=== PATIENT | female | born 1985 | race Caucasian/White ===

== ENCOUNTER 2017-11-04 14:27 | Inpatient (IN) | payer BC ==
[~2017-11-04] VITALS: Ht 158.8 cm; Wt 108.6 kg
[2017-11-04] VITALS (17 sets, daily range): BP systolic 90–124; BP diastolic 44–75; PULSE 73–94; TEMP 98.2–98.4
[~2017-11-04 14:27] MED LIST: ACID REFLUX MED; ALDACTONE 100M100 MG PO; FERROUS SU325 MG/TAB PO; FLEXERIL 1010 MG/TAB PO; LORTAB 5/500 501 TAB PO; MOTRIN 800800 MG/TAB PO; NAPROSYN500 MG PO; PERCOCET 325 MG1 TA2 PO; PRENATAL1 TA4 PO; SENOKOT S 50 MG1 TAB PO; [UNRECOGNIZED DRUG - OTHER] PO
[2017-11-04] MEDS ORDERED: PRENATAL1 TA7 PO (17:20)
[2017-11-04 17:35] LABS: BASO % 0.2 % (0.0-2.0); EOS % 0.3 % (0-4.0); GRAN # 9.4 (1.4-6.5); GRAN % 75.5 % (42.2-75.2); LYMPH # 1.9 (1.2-3.4); LYMPH % 15.6 % (20.0-51.0); MEAN CELL VOLUME 88 fl (80.0-100.0); MEAN CORPUSCULAR HGB CONC 33 g/dl (33.0-37.0); MEAN PLATELET VOLUME 11.2 fl (7.4-10.4); MONO # 0.8 (0.1-0.6); MONO % 6.1 % (1.7-9.3); PLATELET COUNT 192 K/mm3 (130-400); RED BLOOD COUNT 4.16 M/mm3 (4.10-5.30); REDCELL DISTRIBUTION WIDTH-CV 14.1 % (11.5-14.5)
[2017-11-04 17:36] LABS: HEMATOCRIT 36.4 % (37.0-47.0); HEMOGLOBIN 11.9 g/dl (12.5-16.0); MEAN CORPUSCULAR HEMOGLOBIN 29 pg (27.0-31.0)
[2017-11-05] VITALS: BP 97/51; PULSE 70
[2017-11-05 05:00] VITALS: BP 98/62; PULSE 72; TEMP 98.1
[2017-11-05 07:36] VITALS: BP 115/71; PULSE 75; TEMP 97.5
[2017-11-05 15:29] VITALS: BP 115/72; PULSE 78; TEMP 98
[2017-11-05 20:00] VITALS: BP 110/51; PULSE 78; TEMP 98.2
[2017-11-06 08:00] VITALS: BP 106/56; PULSE 77; TEMP 98.1
[2017-11-06] MEDS ORDERED: IBU800 M1 PO (08:54)
[2017-11-06] MEDS ORDERED: PERCOCET 325 MG1 TA2 PO (08:55)
== END 2017-11-06 13:25 | disposition home or self-care (01) | DRG 766 ==
LOC: LDR 14:27 → OB 17:00 → LDR 11-05 14:16 → OB 11-06 13:25
PROVIDERS: Student in an Organized Health Care Education/Training Program
PROC: 10D00Z1 Extraction of Products of Conception, Low, Open Approach (ICD-10-PCS; principal; 2017-11-04)
DX: O34.211 Maternal care for low transverse scar from previous cesarean delivery (principal); N85.8 Other specified noninflammatory disorders of uterus; Z3A.39 39 weeks gestation of pregnancy; Z37.0 Single live birth
CPT/HCPCS: J0690; J1885; J2175; J2370; J2405; J2590; J3010; J7120

== ENCOUNTER 2019-02-07 18:23 | Observation (INO) | payer BC ==
[~2019-02-07] VITALS: Ht 157.5 cm; Wt 101.6 kg
[~2019-02-07 18:23] MED LIST changes: +IBU800 M1 PO; +PRENATAL1 TA7 PO
[2019-02-07 19:13] LABS: BASO % 0.4 % (0.0-2.0); EOS # 0.1 (0.0-0.7); EOS % 0.9 % (0-4.0); GRAN # 6.8 (1.4-6.5); GRAN % 65.9 % (42.2-75.2); HEMATOCRIT 40.3 % (37.0-47.0); HEMOGLOBIN 13.5 g/dl (12.5-16.0); LYMPH # 2.6 (1.2-3.4); LYMPH % 25.1 % (20.0-51.0); MEAN CELL VOLUME 85 fl (80.0-100.0); MEAN CORPUSCULAR HEMOGLOBIN 29 pg (27.0-31.0); MEAN CORPUSCULAR HGB CONC 34 g/dl (33.0-37.0); MEAN PLATELET VOLUME 10.3 fl (7.4-10.4); MONO # 0.8 (0.1-0.6); MONO % 7.2 % (1.7-9.3); PLATELET COUNT 224 K/mm3 (130-400); RED BLOOD COUNT 4.72 M/mm3 (4.10-5.30); REDCELL DISTRIBUTION WIDTH-CV 12.8 % (11.5-14.5)
[2019-02-07 19:25] LABS: ALBUMIN 4.1 gm/dL (3.5-5.0); BILIRUBIN,TOTAL 0.9 mg/dL (0.0-1.0); C-REACTIVE PROTEIN 1.1 mg/dL (0.0-0.9); CALCIUM 9.4 mg/dL (8.4-10.2); CREATININE, serum 0.59 (0.52-1.25); POTASSIUM 3.8 mmol/L (3.4-5.0); TOTAL PROTEIN 7.4 gm/dL (6.4-8.2)
[2019-02-07 20:23] LABS: COLLECTION METHOD CLEAN CATCH
[2019-02-07 20:37] LABS: PH 8 (5-8); SQUAMOUS EPITHELIAL 0-2 /hpf; URINE APPEARANCE Clear; URINE BACTERIA None Seen /hpf; URINE BILIRUBIN Negative (NEGATIVE); URINE BLOOD 2+ (NEGATIVE); URINE COLOR Yellow; URINE GLUCOSE Negative (NEGATIVE); URINE KETONE Negative (NEGATIVE); URINE LEUKOCYTE ESTERASE Negative (NEGATIVE); URINE NITRATE Negative (NEGATIVE); URINE PROTEIN(semi-quant) Negative (NEGATIVE)
[2019-02-07] MEDS ORDERED: PHENTERMINE15 MG PO (21:17)
--- NOTE | 2019-02-07 22:00 | NUR ---
Received patient per w/c from ED. Is alert and oriented x4. Has IV to left hand with Levaquin connected. Denies pain at this time. Oriented to bed controls and call light.
[2019-02-07 22:23] VITALS: BP 121/51; PULSE 63; TEMP 98.4
[2019-02-07 22:36] VITALS: BP 121/51; PULSE 66; TEMP 98.4
[2019-02-07] MEDS ORDERED: PROZAC60 MG PO (22:50)
--- NOTE | 2019-02-07 23:23 | NUR ---
Medicated with IV Dilaudid for pain to epigastric area 11/11. IVF infusing to left hand without redness or swelling. Is NPO for possible surgery in AM.
[2019-02-08] VITALS (11 sets, daily range): BP systolic 102–115; BP diastolic 49–70; PULSE 66–76; TEMP 98–98.4
--- NOTE | 2019-02-08 02:00 | NUR ---
Offers no concerns, up to bathroom on own.
--- NOTE | 2019-02-08 07:22 | NUR ---
report to Tati CHEN.
--- NOTE | 2019-02-08 11:00 | NUR ---
Patient is getting in the shower at this time. Discussed plan for surgery and discharge afterwards if Dr Connolly lets her go. Denies nausea. Minimal complaints of pain at this time. She verbalized understanding that she'll go for surgery around 1200. No other changes at this time. Call light within reach.
--- NOTE | 2019-02-08 11:11 | NUR ---
First visit from the transfer and pumphouse operator. No needs right now.
--- NOTE | 2019-02-08 14:30 | NUR ---
Patient is back from surgery. She is drowsy at this itme. Denies nausea. She did have nausea before coming to the floor but it has resolved at this time. Her is at bedside. Vital signs stable. No other changes at this time. Call light within reach.
--- NOTE | 2019-02-08 15:56 | NUR ---
SW attempted to meet with patient, she was in surgery will follow up
--- NOTE | 2019-02-08 18:30 | NUR ---
Shalonda has been doing well since waking up. She has been given a norco and tolerated it well. Explained that is what she is going home on. Explained how to order food and what foods to avoid while healing. No other changes at this time. Patient will discharge later this evening. No other changes at this time. Call light within reach.
--- NOTE | 2019-02-08 20:40 | NUR ---
Pt. reported that her had arrived. Pt. has reached discharge criteria. Pt. given discharge paperwork. Discharge paperwork reviewed with pt. Pt. voices understanding. Pt. escorted out by this nurse.
--- NOTE | 2019-02-08 21:43 | NUR ---
Pt. waiting for to return to discharge. Pt. is A&OX3, assessment complete. INT discontinued from lt. hand. Pt. tolerated well. Pt. does report pain at a 5 to abd. Will give pain meds. Pt. denies further needs.
== END 2019-02-08 20:45 | disposition home or self-care (01) ==
LOC: COL.ER 18:23 → SURG 21:13 → COL.ER 21:13 → SURG 21:13
PROVIDERS: Nurse Practitioner; ADMIT Surgery
DX: K80.12 Calculus of gallbladder with acute and chronic cholecystitis without obstruction (principal); F41.9 Anxiety disorder, unspecified; G43.909 Migraine, unspecified, not intractable, without status migrainosus; Z88.1 Allergy status to other antibiotic agents; Z91.048 Other nonmedicinal substance allergy status
CPT/HCPCS: G0378; J1170; J1956; J2405; J2550; J2704; J2710; J3010; J7030; J7120; Q9967